=== PATIENT | male | born 1970 | race American Indian/Alaskan Native ===

== ENCOUNTER 2018-09-25 20:00 | Inpatient (IN) | payer BC ==
[2018-09-25 20:07] VITALS: BMI 25.4
--- NOTE | 2018-09-25 20:32 | ED PDOC ---
Arrival/HPI - General Chief Complaint: Chest Pain Time Seen by Provider: 09/25/18 20:06 Historian: Patient - History of Present Illness Narrative History of Present Illness (Text): 09/25/18 20:25 Adriano Ambrosio is a 48 year old male who presents to the ED complaining of mid- sternal chest pain since 03:00 this morning. Patient states pain is worsened with deep inspiration, also reports associated shortness of breath. Patient repo rts a family history of cardiac disease and notes his last stress test was 2 years ago. Patient denies any fever, chills, breath, nausea, vomiting, diarrhea, urinary symptoms, back pain, neck pain, headache, dizziness, or any other complaints. Symptom Onset: Gradual Symptom Course: Unchanged Activities at Onset: Light Context: Home Past Medical History - Provider Review Nursing Documentation Reviewed: Yes - Cardiac Hx Hypertension: Yes - Endocrine/Metabolic Hx Hypothyroidism: Yes - Psychiatric Hx Substance Use: No - Suicidal Assessment Feels Threatened In Home Enviroment: No Family/Social History - Physician Review Nursing Documentation Reviewed: Yes Family/Social History: Unknown Family HX Smoking Status: Never Smoked Hx Alcohol Use: No Hx Substance Use: No Allergies/Home Meds Allergies/Adverse Reactions: Allergies amoxicillin Allergy (Verified 09/25/18 20:07) ANAPHYLAXIS Home Medications: Home Meds Medication Instructions Recorded Confirmed Levothyroxine 1 tab PO DAILY 07/20/14 07/20/14 Meloxicam 1 tab PO DAILY 07/20/14 07/20/14 Review of Systems - Physician Review All systems were reviewed & negative as marked: Yes - Review of Systems Constitutional: Normal. absent: Fevers Eyes: Normal ENT: Normal Respiratory: SOB. absent: Cough Cardiovascular: Chest Pain Gastrointestinal: Normal. absent: Abdominal Pain, Diarrhea, Nausea, Vomiting Genitourinary Male: Normal. absent: Dysuria, Frequency, Hematuria, Urinary Output Changes Musculoskeletal: Normal. absent: Back Pain, Neck Pain Skin: Normal. absent: Rash Neurological: Normal. absent: Headache, Dizziness Endocrine: Normal Hemo/Lymphatic: Normal Psychiatric: Normal Physical Exam Vital Signs Reviewed: Yes Vital Signs Temp Pulse Resp BP Pulse Ox 09/25/18 20:04 97.7 F 60 18 142/75 98 Temperature: Afebrile Blood Pressure: Normal Pulse: Regular Respiratory Rate: Normal Appearance: Positive for: Well-Appearing, Non-Toxic, Comfortable Pain Distress: None Mental Status: Positive for: Alert and Oriented X 3 - Systems Exam Head: Present: Atraumatic, Normocephalic Pupils: Present: PERRL Extroacular Muscles: Present: EOMI Conjunctiva: Present: Normal Mouth: Present: Moist Mucous Membranes Neck: Present: Normal Range of Motion Respiratory/Chest: Present: Clear to Auscultation, Good Air Exchange. No: Respiratory Distress, Accessory Muscle Use Cardiovascular: Present: Regular Rate and Rhythm, Normal S1, S2. No: Murmurs Abdomen: No: Tenderness, Distention, Peritoneal Signs Back: Present: Normal Inspection Upper Extremity: Present: Normal Inspection. No: Cyanosis, Edema Lower Extremity: Present: Normal Inspection. No: Edema Neurological: Present: GCS=15, CN II-XII Intact, Speech Normal Skin: Present: Warm, Dry, Normal Color. No: Rashes Psychiatric: Present: Alert, Oriented x 3, Normal Insight, Normal Concentration Medical Decision Making ED Course and Treatment: 09/25/18 20:25 Impression: 48 year old male complaining of chest pain and shortness of breath. Plan: -- EKG -- Chest X-ray -- Labs, cardiac enzymes, D-dimer -- UA -- Reassess and disposition Prior Visits: Notes and results from previous visits were reviewed. Progress Notes: Reviewed EKG, sinus bradycardia at 59 bpm. LVH. Non-specific ST/T wave changes. 09/25/18 21:05 Chest X-ray reviewed, shows no acute processes. 09/25/18 22:50 Case discussed with medical scribe education coordinator, who is aware and agrees with plan. 09/25/18 23:[address] Bergman, who is aware and agrees with plan. Accepts pt in to hospitalist service. Pt will go to remote telemetry observation for chest pain. - Lab Interpretations I have reviewed the lab results: Yes - RAD Interpretation Software Quality Engineer: ED Physician - EKG Interpretation Interpreted by ED Physician: Yes Type: 12 lead EKG - Scribe Statement The provider has reviewed the documentation as recorded by the Scribe Aysha Ibarra Provider Scribe Attestation: All medical record entries made by the Scribe were at my direction and persona lly dictated by me. I have reviewed the chart and agree that the record accurately reflects my personal performance of the history, physical exam, medical decision making, and the department course for this patient. I have also personally directed, reviewed, and agree with the discharge instructions and disposition. Disposition/Present on Arrival - Present on Arrival Any Indicators Present on Arrival: No History of DVT/PE: No History of Uncontrolled Diabetes: No Urinary Catheter: No History of Decub. Ulcer: No History Surgical Site Infection Following: None - Disposition Have Diagnosis and Disposition been Completed?: Yes Diagnosis: Chest pain Disposition: HOSPITALIZED Disposition Time: 23:05 Condition: GOOD
[2018-09-25 20:53] LABS: BASO # 0.03 K/mm3 (0.0-2.0); BASO % 0.4 % (0.0-3.0); EOS # 0.2 (0.0-0.7); EOS % 2.3 % (1.5-5.0); HEMOGLOBIN 14.2 g/dL (14.0-18.0); LYMPH # 2.2 (1.2-3.4); LYMPH % 27.7 % (22.0-35.0); MEAN CORPUSCULAR HEMOGLOBIN 28.4 pg (25.0-35.0); MEAN CORPUSCULAR HGB CONC 33.4 g/dl (31.0-37.0); MEAN PLATELET VOLUME 10.4 fl (7.0-11.0); MONO # 0.6 (0.1-0.6); MONO % 7.7 % (1.0-6.0); RED CELL DISTRIBUTION WIDTH 13.7 % (11.5-14.5); WHITE BLOOD COUNT 7.8 10^3/uL (4.5-11.0)
[2018-09-25 20:56] LABS: ALB/GLOB RATIO 1.5 (1.1-1.8); ALBUMIN 4.4 g/dL (3.0-4.8); ALT/SGPT 34 U/L (7-56); AST/SGOT 38 U/L (17-59); BLOOD UREA NITROGEN 16 mg/dL (7-21); CALCIUM 9.5 mg/dL (8.4-10.5); GFR NON-AFRICAN AMERICAN 38
[2018-09-25 21:00] LABS: INR 1.07; PARTIAL THROMBOPLASTIN TIME 29.4 Seconds (26.9-38.3); PROTHROMBIN TIME 11.9 SECONDS (9.4-12.5)
[2018-09-25 21:04] LABS: D DIMER < 200 ng/mlDDU (0-243)
[2018-09-25 21:08] LABS: TROPONIN I < 0.01 ng/mL
[2018-09-25 21:17] LABS: CK-MB 3.1 ng/mL (0.0-3.6)
[2018-09-25 21:34] LABS: PH,URINE 6.5 (4.7-8.0); URINE BILIRUBIN NEGATIVE (NEGATIVE); URINE BLOOD NEGATIVE (NEGATIVE); URINE GLUCOSE (UA) NEGATIVE (NEGATIVE); URINE LEUKOCYTE ESTERASE NEGATIVE Leu/uL (NEGATIVE); URINE PROTEIN NEGATIVE mg/dL (<30 mg/dL); URINE UROBILINOGEN 0.2 E.U./dL (<1 E.U./dL)
[2018-09-25 21:37] LABS: URINE APPEARANCE CLEAR (CLEAR); URINE COLOR YELLOW (YELLOW)
[2018-09-25] MEDS ORDERED: Aspirin 325 mg EC Tablets PO STA (22:51)
--- NOTE | 2018-09-26 00:16 | CP.PCM.HP ---
<JaylaEfrain - Last Filed: 09/26/18 03:23> History of Present Illness - History of Present Illness History of Present Illness: Efrain Dickerson DO PGY-1 H&P Note for Dr. Pacheco Taylor: chest pain 48 year old male with PMH of vertigo, migraine, kidney disease presents to the ED with mid-sternal chest pain x1 day. Pain started at 3 am that's sharp, intermittent, no radiation, with tender to palpate chest wall. Patient noted to have respiratory infection with productive cough and fever for the last week for which he's been taking OTC ibuprofen and cough meds. Fever and cough resolved 3 days ago. Patient reports occasional SOB as well. He was seen at his PMD office, EKG done and shows bradycardia of 53. Patient was advised to come to ED for further work up. He denied cardiac disease, has cardiac stress test 2 years ago that was negative. He denied palpitations, headache, leg swelling, [place], orthopnea, exercise intolerance, changes in bowel movement, N/V/D, urinary symptoms. 12 points ROS reviewed with pertinent positives as above PMH:vertigo, migraine, kidney disease PSH: none Meds: Meclizine prn, naproxin All: amoxicillin FH: CAD, HTN, DM SH: drinks wine occasionally, no smoking or illicit drug use. Works as delivery, lifts heavy objects PMD: Dr Brush Present on Admission - Present on Admission Any Indicators Present on Admission: No Past Patient History - Past Social History Smoking Status: Never Smoked - CARDIAC Hx Hypertension: Yes - ENDOCRINE/METABOLIC Hx Hypothyroidism: Yes - PSYCHIATRIC Hx Substance Use: No Meds Allergies/Adverse Reactions: Allergies Allergy/AdvReac Type Severity Reaction Status Date / Time amoxicillin Allergy ANAPHYLAXIS Verified 09/25/18 20:07 Physical Exam - Constitutional Appears: Well, Non-toxic, No Acute Distress - Head Exam Head Exam: ATRAUMATIC, NORMAL INSPECTION, NORMOCEPHALIC - Eye Exam Eye Exam: EOMI, Normal appearance, PERRL Pupil Exam: NORMAL ACCOMODATION, PERRL - ENT Exam ENT Exam: Mucous Membranes Moist, Normal Exam - Neck Exam Neck exam: Positive for: Normal Inspection - Respiratory Exam Respiratory Exam: Chest Wall Tenderness, Clear to Auscultation Bilateral, NORMAL BREATHING PATTERN. absent: Rhonchi, Wheezes - Cardiovascular Exam Cardiovascular Exam: Bradycardia, REGULAR RHYTHM, +S1, +S2 - GI/Abdominal Exam GI & Abdominal Exam: Normal Bowel Sounds, Soft. absent: Guarding, Mass, Tenderness - Extremities Exam Extremities exam: Positive for: normal capillary refill, normal inspection. Negative for: calf tenderness, joint swelling, pedal edema, tenderness - Back Exam Back exam: NORMAL INSPECTION - Neurological Exam Neurological exam: Alert, CN II-XII Intact, Normal Gait, Oriented x3, Reflexes Normal - Psychiatric Exam Psychiatric exam: Normal Affect, Normal Mood - Skin Skin Exam: Dry, Intact, Normal Color, Warm Results - Vital Signs Recent Vital Signs: Last Vital Signs Temp 97.7 F 09/25/18 20:04 Pulse 63 09/26/18 00:11 Resp 18 09/26/18 00:11 BP 123/77 09/26/18 00:11 Pulse Ox 96 09/26/18 00:11 - Labs Result Diagrams: 09/25/18 20:41 09/25/18 20:41 Labs: Laboratory Results - last 24 hr 09/25/18 09/25/18 09/25/18 20:41 20:41 20:41 WBC 7.8 RBC 5.00 Hgb 14.2 Hct 42.5 MCV 85.0 MCH 28.4 MCHC 33.4 RDW 13.7 Plt Count 203 MPV 10.4 Neut % (Auto) 61.9 Lymph % (Auto) 27.7 Brooke % (Auto) 7.7 H Eos % (Auto) 2.3 Baso % (Auto) 0.4 Lymph # (Auto) 2.2 Brooke # (Auto) 0.6 Eos # (Auto) 0.2 Baso # (Auto) 0.03 Absolute Neuts (auto) 4.80 PT 11.9 INR 1.07 APTT 29.4 D-Dimer, Quantitative < 200 Sodium 140 Potassium 4.4 Chloride 102 Carbon Dioxide 31 Anion Gap 11 BUN 16 Creatinine 1.9 H Est GFR ( Amer) 46 Est GFR (Non-Af Amer) 38 Random Glucose 96 Calcium 9.5 Magnesium 2.2 Total Bilirubin 0.6 AST 38 ALT 34 Alkaline Phosphatase 51 Lactate Dehydrogenase 473 Total Creatine Kinase 612 H CK-MB (CK-2) 3.1 CK-MB (CK-2) % Cancelled Troponin I < 0.01 Total Protein 7.5 Albumin 4.4 Globulin 3.0 Albumin/Globulin Ratio 1.5 Urine Color Urine Appearance Urine pH Ur Specific [place] Urine Protein Urine Glucose (UA) Urine Ketones Urine Blood Urine Nitrate Urine Bilirubin Urine Urobilinogen Ur Leukocyte Esterase 09/25/18 21:15 WBC RBC Hgb Hct MCV MCH MCHC RDW Plt Count MPV Neut % (Auto) Lymph % (Auto) Brooke % (Auto) Eos % (Auto) Baso % (Auto) Lymph # (Auto) Brooke # (Auto) Eos # (Auto) Baso # (Auto) Absolute Neuts (auto) PT INR APTT D-Dimer, Quantitative Sodium Potassium Chloride Carbon Dioxide Anion Gap BUN Creatinine Est GFR ( Amer) Est GFR (Non-Af Amer) Random Glucose Calcium Magnesium Total Bilirubin AST ALT Alkaline Phosphatase Lactate Dehydrogenase Total Creatine Kinase CK-MB (CK-2) CK-MB (CK-2) % Troponin I Total Protein Albumin Globulin Albumin/Globulin Ratio Urine Color Yellow Urine Appearance Clear Urine pH 6.5 Ur Specific [place] 1.020 Urine Protein Negative Urine Glucose (UA) Negative Urine Ketones Negative Urine Blood Negative Urine Nitrate Negative Urine Bilirubin Negative Urine Urobilinogen 0.2 Ur Leukocyte Esterase Negative Assessment & Plan - Assessment and Plan (Free Text) Assessment: 48 year old male with PMH of vertigo, migraine and kidney disease presents to the ED with mid-sternal chest pain x1 day. Admitted to r/o ACS Plan: Atypical chest pain- r/o ACS: -EKG: sinus rupa @59, LVH, non specific ST-T wave changes -CXR: NAD -troponin negative x1. continue to trend -D-dimer negative -started asa 81 mg daily -duoneb for SOB -O2 NC prn -EKG in am -f/u lipid profile, A1C, TSH -strong family history of CAD Renal insuffiency: -BUN/Cr 16/1.9 with unknown baseline -IVF NS @100cc/hr h/o vertigo: -Meclizine prn PPX: DVT: SCD DVT: not indicated HHD Case reviewed and plan discussed with attending Dr Pacheco Dickerson, DO PGY1 <Phyllis Bergman - Last Filed: 09/26/18 12:59> Results - Vital Signs Recent Vital Signs: Last Vital Signs Temp 97.7 F 09/26/18 06:00 Pulse 55 L 09/26/18 06:00 Resp 18 09/26/18 06:00 BP 119/70 09/26/18 06:00 Pulse Ox 98 09/26/18 06:00 - Labs Result Diagrams: 09/26/18 06:00 09/26/18 06:00 Labs: Laboratory Results - last 24 hr 09/25/18 09/25/18 09/25/18 20:41 20:41 20:41 WBC 7.8 RBC 5.00 Hgb 14.2 Hct 42.5 MCV 85.0 MCH 28.4 MCHC 33.4 RDW 13.7 Plt Count 203 MPV 10.4 Neut % (Auto) 61.9 Lymph % (Auto) 27.7 Brooke % (Auto) 7.7 H Eos % (Auto) 2.3 Baso % (Auto) 0.4 Lymph # (Auto) 2.2 Brooke # (Auto) 0.6 Eos # (Auto) 0.2 Baso # (Auto) 0.03 Absolute Neuts (auto) 4.80 PT 11.9 INR 1.07 APTT 29.4 D-Dimer, Quantitative < 200 Sodium 140 Potassium 4.4 Chloride 102 Carbon Dioxide 31 Anion Gap 11 BUN 16 Creatinine 1.9 H Est GFR ( Amer) 46 Est GFR (Non-Af Amer) 38 Random Glucose 96 Hemoglobin A1c Calcium 9.5 Phosphorus Magnesium 2.2 Total Bilirubin 0.6 AST 38 ALT 34 Alkaline Phosphatase 51 Lactate Dehydrogenase 473 Total Creatine Kinase 612 H CK-MB (CK-2) 3.1 CK-MB (CK-2) % Cancelled Troponin I < 0.01 Total Protein 7.5 Albumin 4.4 Globulin 3.0 Albumin/Globulin Ratio 1.5 Triglycerides Cholesterol LDL Cholesterol Direct HDL Cholesterol TSH 3rd Generation Urine Color Urine Appearance Urine pH Ur Specific [place] Urine Protein Urine Glucose (UA) Urine Ketones Urine Blood Urine Nitrate Urine Bilirubin Urine Urobilinogen Ur Leukocyte Esterase 09/25/18 09/26/18 09/26/18 21:15 02:48 06:00 WBC 5.8 D RBC 4.81 Hgb 13.3 L Hct 40.7 L MCV 84.6 MCH 27.7 MCHC 32.7 RDW 13.8 Plt Count 178 MPV 10.1 Neut % (Auto) 55.6 Lymph % (Auto) 28.8 Brooke % (Auto) 11.9 H Eos % (Auto) 3.4 Baso % (Auto) 0.3 Lymph # (Auto) 1.7 Brooke # (Auto) 0.7 H Eos # (Auto) 0.2 Baso # (Auto) 0.02 Absolute Neuts (auto) 3.22 PT INR APTT D-Dimer, Quantitative Sodium Potassium Chloride Carbon Dioxide Anion Gap BUN Creatinine Est GFR ( Amer) Est GFR (Non-Af Amer) Random Glucose Hemoglobin A1c Calcium Phosphorus Magnesium Total Bilirubin AST ALT Alkaline Phosphatase Lactate Dehydrogenase Total Creatine Kinase CK-MB (CK-2) CK-MB (CK-2) % Troponin I < 0.01 Total Protein Albumin Globulin Albumin/Globulin Ratio Triglycerides Cholesterol LDL Cholesterol Direct HDL Cholesterol TSH 3rd Generation Urine Color Yellow Urine Appearance Clear Urine pH 6.5 Ur Specific [place] 1.020 Urine Protein Negative Urine Glucose (UA) Negative Urine Ketones Negative Urine Blood Negative Urine Nitrate Negative Urine Bilirubin Negative Urine Urobilinogen 0.2 Ur Leukocyte Esterase Negative 09/26/18 09/26/18 09/26/18 06:00 06:00 06:00 WBC RBC Hgb Hct MCV MCH MCHC RDW Plt Count MPV Neut % (Auto) Lymph % (Auto) Brooke % (Auto) Eos % (Auto) Baso % (Auto) Lymph # (Auto) Brooke # (Auto) Eos # (Auto) Baso # (Auto) Absolute Neuts (auto) PT INR APTT D-Dimer, Quantitative Sodium 138 Potassium 4.0 Chloride 104 Carbon Dioxide 28 Anion Gap 10 BUN 15 Creatinine 1.6 H Est GFR ( Amer) 57 Est GFR (Non-Af Amer) 47 Random Glucose 99 Hemoglobin A1c 6.2 Calcium 8.9 Phosphorus 3.6 Magnesium Total Bilirubin 0.6 AST 33 ALT 32 Alkaline Phosphatase 52 Lactate Dehydrogenase Total Creatine Kinase CK-MB (CK-2) CK-MB (CK-2) % Troponin I Total Protein 6.7 Albumin 3.9 Globulin 2.8 Albumin/Globulin Ratio 1.4 Triglycerides 58 Cholesterol 145 LDL Cholesterol Direct 53 HDL Cholesterol 79 H TSH 3rd Generation 2.70 Urine Color Urine Appearance Urine pH Ur Specific [place] Urine Protein Urine Glucose (UA) Urine Ketones Urine Blood Urine Nitrate Urine Bilirubin Urine Urobilinogen Ur Leukocyte Esterase 09/26/18 08:50 WBC RBC Hgb Hct MCV MCH MCHC RDW Plt Count MPV Neut % (Auto) Lymph % (Auto) Brooke % (Auto) Eos % (Auto) Baso % (Auto) Lymph # (Auto) Brooke # (Auto) Eos # (Auto) Baso # (Auto) Absolute Neuts (auto) PT INR APTT D-Dimer, Quantitative Sodium Potassium Chloride Carbon Dioxide Anion Gap BUN Creatinine Est GFR ( Amer) Est GFR (Non-Af Amer) Random Glucose Hemoglobin A1c Calcium Phosphorus Magnesium Total Bilirubin AST ALT Alkaline Phosphatase Lactate Dehydrogenase Total Creatine Kinase CK-MB (CK-2) CK-MB (CK-2) % Troponin I < 0.01 Total Protein Albumin Globulin Albumin/Globulin Ratio Triglycerides Cholesterol LDL Cholesterol Direct HDL Cholesterol TSH 3rd Generation Urine Color Urine Appearance Urine pH Ur Specific [place] Urine Protein Urine Glucose (UA) Urine Ketones Urine Blood Urine Nitrate Urine Bilirubin Urine Urobilinogen Ur Leukocyte Esterase Attending/Attestation - Attestation I have personally seen and examined this patient.: Yes I have fully participated in the care of the patient.: Yes I have reviewed all pertinent clinical information: Yes Notes (Text): 09/26/18 12:57 Pt seen with the resident by the bedside. Case discussed in detail Agree with documentation,assessment and plan of treatment.
[2018-09-26] MEDS ORDERED: Albuterol-Ipratrop 3 mg / 0.5 (3 ml) UD IH PRN (00:23)
[2018-09-26] MEDS ORDERED: Sodium Chloride 0.9% 1,000 ML IV SCH (00:30)
[2018-09-26 06:32] LABS: BASO # 0.02 K/mm3 (0.0-2.0); BASO % 0.3 % (0.0-3.0); EOS # 0.2 (0.0-0.7); EOS % 3.4 % (1.5-5.0); HEMOGLOBIN 13.3 g/dL (14.0-18.0); LYMPH # 1.7 (1.2-3.4); LYMPH % 28.8 % (22.0-35.0); MEAN CELL VOLUME 84.6 fl (80.0-105.0); MEAN CORPUSCULAR HEMOGLOBIN 27.7 pg (25.0-35.0); MEAN CORPUSCULAR HGB CONC 32.7 g/dl (31.0-37.0); MEAN PLATELET VOLUME 10.1 fl (7.0-11.0); MONO # 0.7 (0.1-0.6); MONO % 11.9 % (1.0-6.0); RBC 4.81 10^6/uL (3.5-6.1); RED CELL DISTRIBUTION WIDTH 13.8 % (11.5-14.5); WHITE BLOOD COUNT 5.8 10^3/uL (4.5-11.0)
[2018-09-26 06:48] LABS: ALB/GLOB RATIO 1.4 (1.1-1.8); ALBUMIN 3.9 g/dL (3.0-4.8); CALCIUM 8.9 mg/dL (8.4-10.5)
--- NOTE | 2018-09-26 09:44 | RAD ---
Date of service: 09/25/2018 HISTORY: cp COMPARISON: No prior. TECHNIQUE: 1 view obtained. FINDINGS: LUNGS: No active pulmonary disease. PLEURA: No significant pleural effusion identified, no pneumothorax apparent. CARDIOVASCULAR: No aortic atherosclerotic calcification present. Normal cardiac size. No pulmonary vascular congestion. OSSEOUS STRUCTURES: No significant abnormalities. VISUALIZED UPPER ABDOMEN: Normal. OTHER FINDINGS: None. IMPRESSION: No active disease.
--- NOTE | 2018-09-26 13:05 | CARD ---
APPROVED REPORT Date of service: 09/26/2018 EKG Measurement Heart [id number] <Conclusion> Normal sinus rhythm Possible Left atrial enlargement
--- NOTE | 2018-09-26 13:20 | CARD ---
APPROVED REPORT Date of service: 09/25/2018 EKG Measurement Heart [id number] <Conclusion> Sinus bradycardia Left atrial enlargement High Voltage -Left ventricular hypertrophy. Abnormal ECG
--- NOTE | 2018-09-26 17:47 | PCM.RRT ---
CONDITIONER TUMBLER OPERATOR Nurse Assessment - Situation Date: 09/26/18 Time CONDITIONER TUMBLER OPERATOR was called: 17:18 CONDITIONER TUMBLER OPERATOR Responder Arrival Time: 17:19 CONDITIONER TUMBLER OPERATOR Location:: [address] [place] [address] Room Number: [id number] CONDITIONER TUMBLER OPERATOR Reason for Call: Chest Pain, Looks Sicker CONDITIONER TUMBLER OPERATOR Called By: RN - IV IV Inserted during CONDITIONER TUMBLER OPERATOR?: No IV Fluids Initiated During CONDITIONER TUMBLER OPERATOR?: no new fluids 0.9 NS already rummimg at 100m/hr - Respiratory Oxygen Delivery Method: Nasal Cannula @L/min Oxygen Flow Rate: 2 Received Nebulizer Treatments:: No Was the Patient Ventilated with Bag/Mask 100% O2?: No Secretions Suctioned?: No Was the Patient Intubated?: No Was the Patient Placed on a Ventilator?: No - Diagnostic Test Ordered EKG: Yes Chest X-Ray: No CT Scan: No CPR started during CONDITIONER TUMBLER OPERATOR?: No - Vital Signs Vital Sign: Rapid Response Vital Sign Blood Pressure 168/52 Pulse Rate 98 Respiratory Rate 34 Temperature 97.9 F Oxygen Saturation 100 - Finger Stick Blood Glucose Finger Stick Blood Glucose: 74 - Time CONDITIONER TUMBLER OPERATOR Ended Time CONDITIONER TUMBLER OPERATOR Ended: 17:34 - Vital Signs at end of CONDITIONER TUMBLER OPERATOR Vital Signs at end of CONDITIONER TUMBLER OPERATOR: Rapid Response End Vital Sign Blood Pressure 154/94 Pulse Rate 98 Respiratory Rate 18 Temperature 97.9 F O2 Sat by Pulse Oximetry 100 - Recommendations Notifications: Attending Physician I.Reason for CONDITIONER TUMBLER OPERATOR - A) Acute Change in Patient: (Select all that apply): Staff member or family is worried about patient - Neurological Status (Select all that apply): Alert, Responsive - Respiratory Oxygen Delivery Method: Nasal Cannula @L/min Oxygen Flow Rate: 2 - Constitutional Appears: Other (anxious, sweating) - Head Head Exam: ATRAUMATIC, NORMOCEPHALIC - Eyes Eye Exam: EOMI, Normal appearance - Respiratory Exam Respiratory Exam: NORMAL BREATHING PATTERN. absent: Accessory Muscle Use - Cardiovascular Exam Cardiovascular Exam: RRR, +S1, +S2 - Neurological Exam Neurological Exam: Alert, Awake, Oriented x3 Plan - Assessment of Findings&Treatment Plan 48 year old male admitted with chest pain and found to have an LIONEL. Past medical history is not verifiable. Patient reports having a history of panic attacks, but denies taking any medications for it. A repeat EKG was performed and compared to prior. Dr. Brady was contacted and informed of the situation. He recommended to obtain stat urine drug screen, a dose of 75 mg of Clopidogrel, and SL nitroglycerin. If the patient's chest pain persist, he will be started on a Nitroglycerin drip and sent to the ICU. At this point in time, we will transfer the patient from remote telemtry (his current location) to telemetry. Furthermore, per Dr. Brady, the patient is to be kept NPO aftert midnight for a possible cardiac catheterization.
--- NOTE | 2018-09-26 17:50 | PCM.RRT ---
<Jose,Nacho - Last Filed: 09/26/18 17:47> LOAN INTERVIEWER Nurse Assessment - Situation Date: 09/26/18 Time LOAN INTERVIEWER was called: 17:18 LOAN INTERVIEWER Responder Arrival Time: 17:19 LOAN INTERVIEWER Location:: [address] [place] [address] Room Number: [id number] LOAN INTERVIEWER Reason for Call: Chest Pain, Looks Sicker LOAN INTERVIEWER Called By: RN - IV IV Inserted during LOAN INTERVIEWER?: No IV Fluids Initiated During LOAN INTERVIEWER?: no new fluids 0.9 NS already rummimg at 100m/hr - Respiratory Oxygen Delivery Method: Nasal Cannula @L/min Oxygen Flow Rate: 2 Received Nebulizer Treatments:: No Was the Patient Ventilated with Bag/Mask 100% O2?: No Secretions Suctioned?: No Was the Patient Intubated?: No Was the Patient Placed on a Ventilator?: No - Diagnostic Test Ordered EKG: Yes Chest X-Ray: No CT Scan: No CPR started during LOAN INTERVIEWER?: No - Vital Signs Vital Sign: Rapid Response Vital Sign Blood Pressure 168/52 Pulse Rate 98 Respiratory Rate 34 Temperature 97.9 F Oxygen Saturation 100 - Finger Stick Blood Glucose Finger Stick Blood Glucose: 74 - Time LOAN INTERVIEWER Ended Time LOAN INTERVIEWER Ended: 17:34 - Vital Signs at end of LOAN INTERVIEWER Vital Signs at end of LOAN INTERVIEWER: Rapid Response End Vital Sign Blood Pressure 154/94 Pulse Rate 98 Respiratory Rate 18 Temperature 97.9 F O2 Sat by Pulse Oximetry 100 - Recommendations Notifications: Attending Physician - Neurological Status (Select all that apply): Alert, Responsive, Oriented, Verbal, Follows Commands - Respiratory Oxygen Delivery Method: Nasal Cannula @L/min Oxygen Flow Rate: 2 - Constitutional Appears: Well, Non-toxic Additional Comments: Initially tremulous, with significant improvement during interview - Head Head Exam: NORMAL INSPECTION, NORMOCEPHALIC - Eyes Eye Exam: EOMI, Normal appearance - Respiratory Exam Respiratory Exam: Clear to Ausculation Bilateral, NORMAL BREATHING PATTERN - Cardiovascular Exam Cardiovascular Exam: REGULAR RHYTHM, +S1, +S2 - GI/Abdominal Exam GI & Abdominal Exam: Soft. absent: Tenderness - Neurological Exam Neurological Exam: Alert, Awake, Oriented x3 - Extremities Exam Extremities Exam: Normal Inspection. absent: Calf Tenderness Plan - Assessment of Findings&Treatment Plan S: LOAN INTERVIEWER called for pt complaining sharp midsternal chest pain, without radiation & change in clinical status, including diaphoresis and tremulousness. Upon interview, pt reported initial chest pain that had resolved during interview. He reports he noticed symptoms of chest pain 2 days prior to coming to hospital. He reports hes had several "panic attacks" in the past where he has felt diaphoretic, "shakiness" and fell to the ground. Pt also reports sour taste in mouth after eating food. Pt was verbal, not short of breath during conversation. He denies fevers, chills, numbness, tingling, shortness of breath, nausea, vomiting. O: Gen: Initially diaphoretic, tremulous. Improved significantly after conversation Heart: RRR, S1/S2 present. CP reproducible to palpation in midsternal and 4th rib, midclavicular region Lungs: CTA Ext: no calf tenderness A/P: EKG ordered stat, reviewed with pts director agricultural services, Dr. Brady. Pt to be transferred from [facility] to telemetry, stat plavix & nitroglycerin and NPO past midnight for possible catheterization tomorrow am. Serum ETOH and UDS ordered as well. <Blake Monroe A - Last Filed: 09/26/18 18:19> LOAN INTERVIEWER Nurse Assessment - Vital Signs Vital Sign: Rapid Response Vital Sign Blood Pressure 168/52 Pulse Rate 98 Respiratory Rate 34 Temperature 97.9 F Oxygen Saturation 100 - Vital Signs at end of LOAN INTERVIEWER Vital Signs at end of LOAN INTERVIEWER: Rapid Response End Vital Sign Blood Pressure 154/94 Pulse Rate 98 Respiratory Rate 18 Temperature 97.9 F O2 Sat by Pulse Oximetry 100 Attending/Attestation - Attestation I have personally seen and examined this patient.: Yes I have fully participated in the care of the patient.: Yes I have reviewed all pertinent clinical information, including history, physical exam and plan: Yes Notes (Text): 09/26/18 18:16 LOAN INTERVIEWER called this afternoon for chest pain and diaphoresis. Serial cardiac enzymes x 3 were negative since admission. EKG reviewed and case discussed with Dr. Brady. Patient is on aspirin. Plavix dose given. NPO pMN for possible cath. UDS and alcohol level ordered. FS 73; orange juice given. Will transfer to telemetry unit and monitor closely. Blake Monroe MD Hospitalist.
--- NOTE | 2018-09-26 18:29 | CARD ---
APPROVED REPORT Date of service: 09/26/2018 EKG Measurement Heart [id number] <Conclusion> Normal sinus rhythm Minimal voltage criteria for LVH, may be normal variant Non Specific ST-T Changes.
[2018-09-26 18:58] LABS: CK-MB 1.9 ng/mL (0.0-3.6); TROPONIN I < 0.01 ng/mL
[2018-09-26 19:18] LABS: BARBITURATES, UR NEGATIVE (NEGATIVE); BENZODIAZEPINES, UR NEGATIVE (NEGATIVE); OPIATES, UR NEGATIVE (NEGATIVE); PHENCYCLIDINE, UR NEGATIVE (NEGATIVE)
--- NOTE | 2018-09-26 19:43 | CARD ---
APPROVED REPORT Date of service: 09/26/2018 EXAM: Two-dimensional and M-mode echocardiogram with Doppler and color Doppler. INDICATION Chest Pain 2D DIMENSIONS Left Atrium (2D)3.9 (1.6-4.0cm)IVSd1.1 (0.7-1.1cm) LVDd4.6 (3.9-5.9cm)PWd0.9 (0.7-1.1cm) LVDs2.8 (2.5-4.0cm)FS (%) 38.7 % LVEF (%)69.1 (>50%) M-Mode DIMENSIONS Aortic Root3.30 (2.2-3.7cm)Aortic Cusp Exc.1.80 (1.5-2.0cm) Aortic Valve AoV Peak Wffaubbp443.0cm/Shanique Peak GR.9mmHg Mitral Valve E/A ratio0.0 TDI Lateral E' Peak V12.60cm/sMedial E' Peak V9.07cm/sE/Lateral E'0.0 E/Medial E'0.0 Pulmonary Valve PV Peak Sxuhpokm57.0cm/sPV Peak Grad.2mmHg Tricuspid Valve TR Peak [id number]/sRAP [id number] Peak Gr.12mmHg [id number] LEFT VENTRICLE The left ventricle is normal size. The left ventricular function is normal. The left ventricular ejection fraction is within the normal range.Ej.Fr:69%. RIGHT VENTRICLE The right ventricle is normal size. The right ventricular systolic function is normal. ATRIA The left atrium size is normal. The right atrium size is normal. AORTIC VALVE Aortic Valve Leaflets are Thickened. Valve Opening Normal. MITRAL VALVE The mitral valve is normal in structure. Valve Leaflets are Thickened. Mitral regurgitation is trace. TRICUSPID VALVE The tricuspid valve is normal in structure. There is trace tricuspid regurgitation. PERICARDIAL EFFUSION There is no pericardial effusion. <Conclusion> The left ventricle is normal size. The left ventricular function is normal. The left ventricular ejection fraction is within the normal range.Ej.Fr:69%. The right ventricle is normal size. The right ventricular systolic function is normal. The left atrium size is normal. The right atrium size is normal. Aortic Valve Leaflets are Thickened. Valve Opening Normal. The mitral valve is normal in structure. Valve Leaflets are Thickened. Mitral regurgitation is trace. The tricuspid valve is normal in structure. There is trace tricuspid regurgitation. There is no pericardial effusion.
[2018-09-26] MEDS: Acetylcysteine 20% Inhal Soln (4ml) PO SCH (19:50)
--- NOTE | 2018-09-27 02:15 | CON ---
DATE: 09/26/2018 CARDIOLOGY CONSULTATION REASON FOR CONSULTATION: Chest pain. HISTORY OF PRESENT ILLNESS: The patient is 48 years old, a male who has no known prior cardiac history, presenting because of chest pain that he describes as pressure retrosternal when he has a bout of diaphoresis. The patient stated that he was diaphoretic briefly. The patient stated that his chest pain happened while he was lying in bed. The patient denies any exertional chest pain or shortness of breath. The patient underwent a stress test as an outpatient some two years ago, which he was told was normal. SOCIAL HISTORY: The patient is single. He is a smoker. He works for [employer]. MEDICATIONS: Current medications; Antivert 12.5 mg once a day, albuterol inhaler every 2 hours p.r.n., aspirin 81 mg once a day, Tylenol 650 mg every 6 hours p.r.n. for pain, normal saline at 100 mL an hour. REVIEW OF SYSTEMS: No nausea or vomiting. No fever or chills. No productive cough. PHYSICAL EXAMINATION GENERAL: The patient is a middle-aged male, who does not appear to be in acute distress. VITAL SIGNS: Blood pressure is 119/70, heart rate 55, temperature 97.7, and respirations 18. HEENT: Normocephalic. CHEST: Clear. HEART: S1 and S2 regular. ABDOMEN: Soft. EXTREMITIES: No edema and no calf tenderness. LABORATORY DATA: Today's SMA-7. Sodium 136, potassium 4.0, chloride 104, CO2 of 28, glucose 99, BUN 15, and creatinine 1.6. Yesterday's creatinine was 1.9. Three sets of troponins are negative. Lipid profile is within normal limits except for HDL at 79. TSH level is within normal limits. PT/PTT and D-dimer are within normal limits. Admitting EKG revealed sinus bradycardia at the rate of 59, LVH by voltage. Chest x-ray official report; no active disease. ASSESSMENT: 1. Chest pain, myocardial infraction is ruled out. 2. Renal insufficiency, most likely a chronic one. 3. Mild sinus bradycardia. RECOMMENDATIONS 1. Continue aspirin 81 mg once a day. 2. Albuterol inhaler every 2 hours p.r.n. 3. Obtain urine for drug screen. 4. I would review the echocardiograph study performed today. Mitchel Brady MD [facility] # [id number]
--- NOTE | 2018-09-27 04:26 | CP.PCM.PN ---
Subjective - Date & Time of Evaluation Date of Evaluation: 09/27/18 Time of Evaluation: 04:26 - Subjective Subjective: TBD Seen earlier Objective - Vital Signs/Intake and Output Vital Signs (last 24 hours): Temp Pulse Resp BP Pulse Ox 98.2 F 52 L 20 120/71 97 09/27/18 00:01 09/27/18 00:01 09/27/18 00:01 09/27/18 00:01 09/27/18 00:01 - Medications Medications: Current Medications Acetaminophen (Tylenol 325mg Tab) 650 mg PO Q6H PRN PRN Reason: Pain, Mild (1-3) Last Admin: 09/26/18 10:21 Dose: 650 mg Acetylcysteine (Acetylcysteine 20%) 3 ml PO BID [facility] Stop: 09/27/18 18:16 Last Admin: 09/26/18 19:50 Dose: 3 ml Albuterol/Ipratropium (Duoneb 3 Mg/0.5 Mg (3 Ml) Ud) 3 ml IH Q2H PRN PRN Reason: Shortness of Breath Aspirin (Ecotrin) 81 mg PO DAILY [facility] Last Admin: 09/26/18 09:31 Dose: 81 mg Meclizine HCl (Antivert) 12.5 mg PO DAILY PRN PRN Reason: Dizziness - Labs Labs: 09/26/18 06:00 09/26/18 06:00 PT 11.9 SECONDS (9.4-12.5) 09/25/18 20:41 INR 1.07 09/25/18 20:41 APTT 29.4 Seconds (26.9-38.3) 09/25/18 20:41
--- NOTE | 2018-09-27 04:32 | CP.PCM.PN ---
Subjective - Date & Time of Evaluation Date of Evaluation: 09/27/18 Time of Evaluation: 04:31 - Subjective Subjective: NTG SL 0.4 mg ordered. 0.3 mg in pixes, given. no other C/0 pain restarted. Objective - Vital Signs/Intake and Output Vital Signs (last 24 hours): Temp Pulse Resp BP Pulse Ox 98.2 F 60 20 120/71 97 09/27/18 00:01 09/27/18 02:00 09/27/18 00:01 09/27/18 00:01 09/27/18 00:01 - Medications Medications: Current Medications Acetaminophen (Tylenol 325mg Tab) 650 mg PO Q6H PRN PRN Reason: Pain, Mild (1-3) Last Admin: 09/26/18 10:21 Dose: 650 mg Acetylcysteine (Acetylcysteine 20%) 3 ml PO BID [facility] Stop: 09/27/18 18:16 Last Admin: 09/26/18 19:50 Dose: 3 ml Albuterol/Ipratropium (Duoneb 3 Mg/0.5 Mg (3 Ml) Ud) 3 ml IH Q2H PRN PRN Reason: Shortness of Breath Aspirin (Ecotrin) 81 mg PO DAILY [facility] Last Admin: 09/26/18 09:31 Dose: 81 mg Meclizine HCl (Antivert) 12.5 mg PO DAILY PRN PRN Reason: Dizziness - Labs Labs: 09/26/18 06:00 09/26/18 06:00 PT 11.9 SECONDS (9.4-12.5) 09/25/18 20:41 INR 1.07 09/25/18 20:41 APTT 29.4 Seconds (26.9-38.3) 09/25/18 20:41
[2018-09-27 07:12] LABS: BASO # 0.02 K/mm3 (0.0-2.0); BASO % 0.3 % (0.0-3.0); EOS # 0.2 (0.0-0.7); EOS % 2.5 % (1.5-5.0); HEMOGLOBIN 14.2 g/dL (14.0-18.0); LYMPH # 1.7 (1.2-3.4); LYMPH % 24.8 % (22.0-35.0); MEAN CELL VOLUME 84.4 fl (80.0-105.0); MEAN CORPUSCULAR HGB CONC 33.1 g/dl (31.0-37.0); MEAN PLATELET VOLUME 10.1 fl (7.0-11.0); MONO # 0.7 (0.1-0.6); MONO % 10.5 % (1.0-6.0); RBC 5.08 10^6/uL (3.5-6.1); RED CELL DISTRIBUTION WIDTH 13.8 % (11.5-14.5); WHITE BLOOD COUNT 6.7 10^3/uL (4.5-11.0)
[2018-09-27] MEDS ORDERED: Sodium Chloride 0.9% 1,000 ML IV SCH (07:30)
[2018-09-27 07:35] LABS: ALB/GLOB RATIO 1.4 (1.1-1.8); ALBUMIN 4.2 g/dL (3.0-4.8); ALT/SGPT 28 U/L (7-56); AST/SGOT 34 U/L (17-59); BLOOD UREA NITROGEN 13 mg/dL (7-21); CALCIUM 9.1 mg/dL (8.4-10.5); GFR NON-AFRICAN AMERICAN 50
[2018-09-27] MEDS ORDERED: Iodixanol 320 mg/ml 150 ml Bottle IV ONE (09:33)
[2018-09-27] MEDS ORDERED: Iohexol 350mgl/ml 50 ML ONE (09:33)
[2018-09-27] MEDS ORDERED: Lidocaine PF 2% (5 ml) Inj (For Cardiac Arrhy) ONE (09:33)
[2018-09-27] MEDS ORDERED: Iodixanol 320 MG/ML 100 ML BOTTLE IV ONE (09:33)
[2018-09-27] MEDS ORDERED: Midazolam 2 MG/2 ML VIAL ONE (10:13)
--- NOTE | 2018-09-27 10:43 | CP.PCM.PN ---
<Liban Malik - Last Filed: 09/27/18 10:34> Subjective - Date & Time of Evaluation Date of Evaluation: 09/27/18 Time of Evaluation: 10:34 - Subjective Subjective: Medicine Progress Note for Dr. Monroe Patient seen and examined at bedside. Patient had FUR JOINER yesterday due to chest pain, cardiac vs anxiety. Patient also had CP overnight requiring SL nitro. Currently, patient still complains of sternal chest pain. Patient is going for cardiac catherization today. Objective - Vital Signs/Intake and Output Vital Signs (last 24 hours): Temp Pulse Resp BP Pulse Ox 97.7 F 61 20 123/67 97 09/27/18 06:00 09/27/18 06:00 09/27/18 06:00 09/27/18 06:00 09/27/18 00:01 Intake and Output: 09/27/18 09/27/18 06:59 18:59 Intake Total 240 Output Total 450 Balance -210 - Medications Medications: Current Medications Acetaminophen (Tylenol 325mg Tab) 650 mg PO Q6H PRN PRN Reason: Pain, Mild (1-3) Last Admin: 09/26/18 10:21 Dose: 650 mg Acetylcysteine (Acetylcysteine 20%) 3 ml PO BID [facility] Stop: 09/27/18 18:16 Last Admin: 09/26/18 19:50 Dose: 3 ml Albuterol/Ipratropium (Duoneb 3 Mg/0.5 Mg (3 Ml) Ud) 3 ml IH Q2H PRN PRN Reason: Shortness of Breath Aspirin (Ecotrin) 81 mg PO DAILY [facility] Last Admin: 09/26/18 09:31 Dose: 81 mg Sodium Chloride (Sodium Chloride 0.9%) 1,000 mls @ 100 mls/hr IV .Q10H [facility] Last Admin: 09/27/18 08:15 Dose: 100 mls/hr Meclizine HCl (Antivert) 12.5 mg PO DAILY PRN PRN Reason: Dizziness - Labs Labs: 09/27/18 07:00 09/27/18 07:00 PT 11.9 SECONDS (9.4-12.5) 09/25/18 20:41 INR 1.07 09/25/18 20:41 APTT 29.4 Seconds (26.9-38.3) 09/25/18 20:41 - Constitutional Appears: No Acute Distress - Head Exam Head Exam: NORMAL INSPECTION - Eye Exam Eye Exam: Normal appearance - ENT Exam ENT Exam: Mucous Membranes Moist, Normal Exam - Neck Exam Neck Exam: Normal Inspection - Respiratory Exam Respiratory Exam: Clear to Ausculation Bilateral. absent: Rales, Rhonchi, Wheezes - Cardiovascular Exam Cardiovascular Exam: RRR, +S1, +S2. absent: Gallop, Rubs, Murmur Additional comments: sternal tenderness on palpation - GI/Abdominal Exam GI & Abdominal Exam: Soft. absent: Distended, Guarding, Tenderness, Rebound - Extremities Exam Extremities Exam: Normal Inspection - Back Exam Back Exam: NORMAL INSPECTION - Neurological Exam Neurological Exam: Alert, Awake, Oriented x3 - Psychiatric Exam Psychiatric exam: Normal Affect, Normal Mood Assessment and Plan - Assessment and Plan (Free Text) Assessment: 48 year old male with PMH of vertigo, migraine and kidney disease presents to the ED with mid-sternal chest pain. Patient will undergo cardiac catherization to further evaluate the etiology of his chest pain. Plan: Atypical chest pain - EKG: sinus rupa @59, LVH, non specific ST-T wave changes; repeat EKG consistent - CXR: NAD - Troponin x3 negative - D-dimer negative - Cont ASA 81 mg daily - Plavix 75 mg x1, f/u recs after cath - ASCVD 10 yr risk 5.5% - Cardiology consulted - cardiac catherization today Renal insuffiency, improved: - Cont IVF NS @100cc/hr - Acetylcysteine prior to cath - Avoid nephrotoxic agents h/o vertigo: -Meclizine prn PPX: DVT: SCD Case reviewed and plan discussed with attending Dr. Monroe. Víctor Malik DO PGY2 <Blake Monroe - Last Filed: 09/27/18 14:09> Objective - Vital Signs/Intake and Output Vital Signs (last 24 hours): Temp Pulse Resp BP Pulse Ox 97.7 F 61 20 123/67 97 09/27/18 06:00 09/27/18 06:00 09/27/18 06:00 09/27/18 06:00 09/27/18 00:01 Intake and Output: 09/27/18 09/27/18 06:59 18:59 Intake Total 240 Output Total 450 Balance -210 - Medications Medications: Current Medications Acetaminophen (Tylenol 325mg Tab) 650 mg PO Q6H PRN PRN Reason: Pain, Mild (1-3) Last Admin: 09/26/18 10:21 Dose: 650 mg Acetylcysteine (Acetylcysteine 20%) 3 ml PO BID [facility] Stop: 09/27/18 18:16 Last Admin: 09/27/18 11:42 Dose: Not Given Albuterol/Ipratropium (Duoneb 3 Mg/0.5 Mg (3 Ml) Ud) 3 ml IH Q2H PRN PRN Reason: Shortness of Breath Aspirin (Ecotrin) 81 mg PO DAILY [facility] Last Admin: 09/26/18 09:31 Dose: 81 mg Sodium Chloride (Sodium Chloride 0.9%) 1,000 mls @ 100 mls/hr IV .Q10H [facility] Last Admin: 09/27/18 08:15 Dose: 100 mls/hr Meclizine HCl (Antivert) 12.5 mg PO DAILY PRN PRN Reason: Dizziness - Labs Labs: 09/27/18 07:00 09/27/18 07:00 PT 11.9 SECONDS (9.4-12.5) 09/25/18 20:41 INR 1.07 09/25/18 20:41 APTT 29.4 Seconds (26.9-38.3) 09/25/18 20:41 Attending/Attestation - Attestation I have personally seen and examined this patient.: Yes I have fully participated in the care of the patient.: Yes I have reviewed all pertinent clinical information, including history, physical exam and plan: Yes Notes (Text): 09/27/18 14:06 48 year old male with past medical history of CKD and strong family cardiac history who presented with complaint of chest pain and diaphrosis. UDS and D-dimer were negative. Serial cardiac enzymes were negative. However yesterday evening chest pain and diaphoresis persisted. He is on aspirin and received dose of plavix yesterday was well. Patient is for cardiac cath this morning. Will follow up with cardiology recommendations. He is on fluids for acute on chronic renal disease which improved. Continue to monitor closely. Blake Monroe MD Hospitalist.
[2018-09-27] MEDS: Acetylcysteine 20% Inhal Soln (4ml) PO SCH (11:42)
[2018-09-27 16:20] VITALS: TEMP 97.9
[2018-09-27 16:27] VITALS: RESP 20
--- NOTE | 2018-09-27 16:50 | CP.PCM.DIS ---
<Liban Malik - Last Filed: 09/27/18 16:47> Provider - Provider Date of Admission: 09/25/18 22:49 Attending physician: Blake Monroe MD Primary care physician: NO PRIMARY CARE PROVIDER Consults: 09/26/18 07:21 Cardiology Consult Routine Comment: Consulting Provider: Mitchel Brady Consulting Physician: Mitchel Brady Reason for Consult: chest pain r/o Time Spent in preparation of Discharge (in minutes): 40 Diagnosis - Discharge Diagnosis (1) Chest pain Status: Resolved (2) GERD (gastroesophageal reflux disease) Status: Chronic Hospital Course - Lab Results Lab Results: Most Recent Lab Values WBC 6.7 10^3/uL (4.5-11.0) 09/27/18 07:00 RBC 5.08 10^6/uL (3.5-6.1) 09/27/18 07:00 Hgb 14.2 g/dL (14.0-18.0) 09/27/18 07:00 Hct 42.9 % (42.0-52.0) 09/27/18 07:00 MCV 84.4 fl (80.0-105.0) 09/27/18 07:00 MCH 28.0 pg (25.0-35.0) 09/27/18 07:00 MCHC 33.1 g/dl (31.0-37.0) 09/27/18 07:00 RDW 13.8 % (11.5-14.5) 09/27/18 07:00 Plt Count 192 10^3/uL (120.0-450.0) 09/27/18 07:00 MPV 10.1 fl (7.0-11.0) 09/27/18 07:00 Neut % (Auto) 61.9 % (50.0-68.0) 09/27/18 07:00 Lymph % (Auto) 24.8 % (22.0-35.0) 09/27/18 07:00 Tift % (Auto) 10.5 % (1.0-6.0) H 09/27/18 07:00 Eos % (Auto) 2.5 % (1.5-5.0) 09/27/18 07:00 Baso % (Auto) 0.3 % (0.0-3.0) 09/27/18 07:00 Lymph # (Auto) 1.7 (1.2-3.4) 09/27/18 07:00 Tift # (Auto) 0.7 (0.1-0.6) H 09/27/18 07:00 Eos # (Auto) 0.2 (0.0-0.7) 09/27/18 07:00 Baso # (Auto) 0.02 K/mm3 (0.0-2.0) 09/27/18 07:00 Absolute Neuts (auto) 4.16 (1.4-6.5) 09/27/18 07:00 PT 11.9 SECONDS (9.4-12.5) 09/25/18 20:41 INR 1.07 09/25/18 20:41 APTT 29.4 Seconds (26.9-38.3) 09/25/18 20:41 D-Dimer, Quantitative < 200 ng/mlDDU (0-243) 09/25/18 20:41 Sodium 137 mmol/L (132-148) 09/27/18 07:00 Potassium 4.0 mmol/L (3.6-5.0) 09/27/18 07:00 Chloride 102 mmol/L (98-107) 09/27/18 07:00 Carbon Dioxide 29 mmol/L (21-33) 09/27/18 07:00 Anion Gap 10 (10-20) 09/27/18 07:00 BUN 13 mg/dL (7-21) 09/27/18 07:00 Creatinine 1.5 mg/dl (0.8-1.5) 09/27/18 07:00 Est GFR ( Amer) > 60 09/27/18 07:00 Est GFR (Non-Af Amer) 50 09/27/18 07:00 POC Glucose (mg/dL) 74 mg/dL (65-110) 09/26/18 17:21 Random Glucose 91 mg/dL (70-110) 09/27/18 07:00 Hemoglobin A1c 6.2 % (4.2-6.5) 09/26/18 06:00 Calcium 9.1 mg/dL (8.4-10.5) 09/27/18 07:00 Phosphorus 3.6 mg/dL (2.5-4.5) 09/26/18 06:00 Magnesium 2.2 mg/dL (1.7-2.2) 09/25/18 20:41 Total Bilirubin 0.6 mg/dL (0.2-1.3) 09/27/18 07:00 AST 34 U/L (17-59) 09/27/18 07:00 ALT 28 U/L (7-56) 09/27/18 07:00 Alkaline Phosphatase 60 U/L (38-126) 09/27/18 07:00 Lactate Dehydrogenase 351 U/L (333-699) 09/26/18 18:02 Total Creatine Kinase 510 U/L (35-230) H 09/26/18 18:02 CK-MB (CK-2) 1.9 ng/mL (0.0-3.6) 09/26/18 18:02 CK-MB (CK-2) % Cancelled 09/25/18 20:41 Troponin I < 0.01 ng/mL 09/26/18 18:02 Total Protein 7.1 g/dL (5.8-8.3) 09/27/18 07:00 Albumin 4.2 g/dL (3.0-4.8) 09/27/18 07:00 Globulin 2.9 gm/dL 09/27/18 07:00 Albumin/Globulin Ratio 1.4 (1.1-1.8) 09/27/18 07:00 Triglycerides 58 mg/dL (35-160) 09/26/18 06:00 Cholesterol 145 mg/dL (130-200) 09/26/18 06:00 LDL Cholesterol Direct 53 mg/dL (0-129) 09/26/18 06:00 HDL Cholesterol 79 mg/dL (29-60) H 09/26/18 06:00 TSH 3rd Generation 2.70 mIU/mL (0.46-4.68) 09/26/18 06:00 Urine Color Yellow (YELLOW) 09/25/18 21:15 Urine Appearance Clear (CLEAR) 09/25/18 21:15 Urine pH 6.5 (4.7-8.0) 09/25/18 21:15 Ur Specific [place] 1.020 (1.005-1.035) 09/25/18 21:15 Urine Protein Negative mg/dL (<30 mg/dL) 09/25/18 21:15 Urine Glucose (UA) Negative mg/dL (NEGATIVE) 09/25/18 21:15 Urine Ketones Negative mg/dL (NEGATIVE) 09/25/18 21:15 Urine Blood Negative (NEGATIVE) 09/25/18 21:15 Urine Nitrate Negative (NEGATIVE) 09/25/18 21:15 Urine Bilirubin Negative (NEGATIVE) 09/25/18 21:15 Urine Urobilinogen 0.2 E.U./dL (<1 E.U./dL) 09/25/18 21:15 Ur Leukocyte Esterase Negative Elicia/uL (NEGATIVE) 09/25/18 21:15 Urine Opiates Screen Negative (NEGATIVE) 09/26/18 18:40 Urine Methadone Screen Negative (NEGATIVE) 09/26/18 18:40 Ur Barbiturates Screen Negative (NEGATIVE) 09/26/18 18:40 Ur Phencyclidine Scrn Negative (NEGATIVE) 09/26/18 18:40 Ur Amphetamines Screen Negative (NEGATIVE) 09/26/18 18:40 U Benzodiazepines Scrn Negative (NEGATIVE) 09/26/18 18:40 U Oth Cocaine Metabols Negative (NEGATIVE) 09/26/18 18:40 U Cannabinoids Screen Negative (NEGATIVE) 09/26/18 18:40 Alcohol, Quantitative < 10 mg/dL (0-10) 09/26/18 18:02 - Hospital Course Hospital Course: Patient is a 48 year old male with PMH of vertigo, migraine, kidney disease presented to the ED with mid-sternal chest pain x1 day. Midsternal chest pain was tender to palpation. Patient notably had URI with cough prior to start of chest pain. Patient was evaluated by his PMD, who advised he go to ED. Of note, he had cardiac stress test 2 years ago that was negative. Patient was subsequently admitted for atypical chest pain to rule out acute coronary syndrome and acute kidney injury. Cardiac enzymes were trended and negative x3, EKG showed sinus bradycardia with non-specific ST-T wave changes. LIONEL resolved with IVF. Hospital course was significant for [employer] in which patient had atypical chest pain; unclear if chest pain was cardiac or anxiety related. Patient was evaluated by cardiology who determined patient required cardiac catherization. Cardiac catherization was unremarkable. The origin of his chest pain was likely 2/2 GI etiology. As patient was hemodynamically stable and cleared by ca rdiology, patient was discharged. Patient was advised to follow up with his PMD within 3-5 days. Patient was also advised to follow up with GI outpatient for further evaulation. Patient was advised to follow up with the GI of his choice, but given information for Dr. Mondragon as an option for follow up. Patient was discharged baby aspirin and protonix. Discharge Exam - Head Exam Head Exam: NORMAL INSPECTION - Eye Exam Eye Exam: Normal appearance - ENT Exam ENT Exam: Normal Exam - Respiratory Exam Respiratory Exam: Clear to PA & Lateral. absent: Rales, Rhonchi, Wheezes - Cardiovascular Exam Cardiovascular Exam: RRR, +S1, +S2. absent: Diastolic murmur, Gallop, Rubs, Systolic Murmur - GI/Abdominal Exam GI & Abdominal Exam: Soft. absent: Distended, Guarding, Rebound, Tenderness - Back Exam Back exam: NORMAL INSPECTION - Neurological Exam Neurological exam: Alert, Oriented x3 - Psychiatric Exam Psychiatric exam: Normal Affect, Normal Mood - Skin Skin Exam: Normal Color, Warm Discharge Plan - Discharge Medications Prescriptions: Aspirin [Ecotrin] 81 mg PO DAILY #14 tabec Pantoprazole Sodium [Protonix] 40 mg PO DAILY #14 ect - Follow Up Plan Condition: GOOD Instructions: Cardiac Catheterization, Heart Healthy Diet, Acid Reflux (Gastroesophageal Reflux Disease), Adult (DC), Lowering Your Risk of Heart Disease, How to Keep Track of Your Heart Rate and Blood Pressure, Chest Pain (ED) Additional Instructions: - Please follow up with a Primary Care Doctor, Dr. Rosado, within 1 week of discharge. - Please follow up with a Shop Girl within 1 week of discharge. - Please follow up with a Gasteroenterologist (GI) within 1 week of discharge. - You are being given the following medications on discharge: - Aspirin 81mg once a day - Protonix 40mg once a day - Your cardiac catheterization did not show any significant blockages. - Please return to the nearest emergency department if your symptoms worsen or reoccur. Referrals: Mitchel Brady MD [Staff Provider] - PCP,NO [Primary Care Provider] - <Blake Monroe - Last Filed: 09/27/18 17:21> Provider - Provider Date of Admission: 09/26/18 17:41 Attending physician: Blake Monroe MD Primary care physician: NO PRIMARY CARE PROVIDER Consults: 09/26/18 07:21 Cardiology Consult Routine Comment: Consulting Provider: Mitchel Brady Consulting Physician: Mitchel Brady Reason for Consult: chest pain r/o Hospital Course - Lab Results Lab Results: Most Recent Lab Values WBC 6.7 10^3/uL (4.5-11.0) 09/27/18 07:00 RBC 5.08 10^6/uL (3.5-6.1) 09/27/18 07:00 Hgb 14.2 g/dL (14.0-18.0) 09/27/18 07:00 Hct 42.9 % (42.0-52.0) 09/27/18 07:00 MCV 84.4 fl (80.0-105.0) 09/27/18 07:00 MCH 28.0 pg (25.0-35.0) 09/27/18 07:00 MCHC 33.1 g/dl (31.0-37.0) 09/27/18 07:00 RDW 13.8 % (11.5-14.5) 09/27/18 07:00 Plt Count 192 10^3/uL (120.0-450.0) 09/27/18 07:00 MPV 10.1 fl (7.0-11.0) 09/27/18 07:00 Neut % (Auto) 61.9 % (50.0-68.0) 09/27/18 07:00 Lymph % (Auto) 24.8 % (22.0-35.0) 09/27/18 07:00 Tift % (Auto) 10.5 % (1.0-6.0) H 09/27/18 07:00 Eos % (Auto) 2.5 % (1.5-5.0) 09/27/18 07:00 Baso % (Auto) 0.3 % (0.0-3.0) 09/27/18 07:00 Lymph # (Auto) 1.7 (1.2-3.4) 09/27/18 07:00 Tift # (Auto) 0.7 (0.1-0.6) H 09/27/18 07:00 Eos # (Auto) 0.2 (0.0-0.7) 09/27/18 07:00 Baso # (Auto) 0.02 K/mm3 (0.0-2.0) 09/27/18 07:00 Absolute Neuts (auto) 4.16 (1.4-6.5) 09/27/18 07:00 PT 11.9 SECONDS (9.4-12.5) 09/25/18 20:41 INR 1.07 09/25/18 20:41 APTT 29.4 Seconds (26.9-38.3) 09/25/18 20:41 D-Dimer, Quantitative < 200 ng/mlDDU (0-243) 09/25/18 20:41 Sodium 137 mmol/L (132-148) 09/27/18 07:00 Potassium 4.0 mmol/L (3.6-5.0) 09/27/18 07:00 Chloride 102 mmol/L (98-107) 09/27/18 07:00 Carbon Dioxide 29 mmol/L (21-33) 09/27/18 07:00 Anion Gap 10 (10-20) 09/27/18 07:00 BUN 13 mg/dL (7-21) 09/27/18 07:00 Creatinine 1.5 mg/dl (0.8-1.5) 09/27/18 07:00 Est GFR ( Amer) > 60 09/27/18 07:00 Est GFR (Non-Af Amer) 50 09/27/18 07:00 POC Glucose (mg/dL) 74 mg/dL (65-110) 09/26/18 17:21 Random Glucose 91 mg/dL (70-110) 09/27/18 07:00 Hemoglobin A1c 6.2 % (4.2-6.5) 09/26/18 06:00 Calcium 9.1 mg/dL (8.4-10.5) 09/27/18 07:00 Phosphorus 3.6 mg/dL (2.5-4.5) 09/26/18 06:00 Magnesium 2.2 mg/dL (1.7-2.2) 09/25/18 20:41 Total Bilirubin 0.6 mg/dL (0.2-1.3) 09/27/18 07:00 AST 34 U/L (17-59) 09/27/18 07:00 ALT 28 U/L (7-56) 09/27/18 07:00 Alkaline Phosphatase 60 U/L (38-126) 09/27/18 07:00 Lactate Dehydrogenase 351 U/L (333-699) 09/26/18 18:02 Total Creatine Kinase 510 U/L (35-230) H 09/26/18 18:02 CK-MB (CK-2) 1.9 ng/mL (0.0-3.6) 09/26/18 18:02 CK-MB (CK-2) % Cancelled 09/25/18 20:41 Troponin I < 0.01 ng/mL 09/26/18 18:02 Total Protein 7.1 g/dL (5.8-8.3) 09/27/18 07:00 Albumin 4.2 g/dL (3.0-4.8) 09/27/18 07:00 Globulin 2.9 gm/dL 09/27/18 07:00 Albumin/Globulin Ratio 1.4 (1.1-1.8) 09/27/18 07:00 Triglycerides 58 mg/dL (35-160) 09/26/18 06:00 Cholesterol 145 mg/dL (130-200) 09/26/18 06:00 LDL Cholesterol Direct 53 mg/dL (0-129) 09/26/18 06:00 HDL Cholesterol 79 mg/dL (29-60) H 09/26/18 06:00 TSH 3rd Generation 2.70 mIU/mL (0.46-4.68) 09/26/18 06:00 Urine Color Yellow (YELLOW) 09/25/18 21:15 Urine Appearance Clear (CLEAR) 09/25/18 21:15 Urine pH 6.5 (4.7-8.0) 09/25/18 21:15 Ur Specific [place] 1.020 (1.005-1.035) 09/25/18 21:15 Urine Protein Negative mg/dL (<30 mg/dL) 09/25/18 21:15 Urine Glucose (UA) Negative mg/dL (NEGATIVE) 09/25/18 21:15 Urine Ketones Negative mg/dL (NEGATIVE) 09/25/18 21:15 Urine Blood Negative (NEGATIVE) 09/25/18 21:15 Urine Nitrate Negative (NEGATIVE) 09/25/18 21:15 Urine Bilirubin Negative (NEGATIVE) 09/25/18 21:15 Urine Urobilinogen 0.2 E.U./dL (<1 E.U./dL) 09/25/18 21:15 Ur Leukocyte Esterase Negative Elicia/uL (NEGATIVE) 09/25/18 21:15 Urine Opiates Screen Negative (NEGATIVE) 09/26/18 18:40 Urine Methadone Screen Negative (NEGATIVE) 09/26/18 18:40 Ur Barbiturates Screen Negative (NEGATIVE) 09/26/18 18:40 Ur Phencyclidine Scrn Negative (NEGATIVE) 09/26/18 18:40 Ur Amphetamines Screen Negative (NEGATIVE) 09/26/18 18:40 U Benzodiazepines Scrn Negative (NEGATIVE) 09/26/18 18:40 U Oth Cocaine Metabols Negative (NEGATIVE) 09/26/18 18:40 U Cannabinoids Screen Negative (NEGATIVE) 09/26/18 18:40 Alcohol, Quantitative < 10 mg/dL (0-10) 09/26/18 18:02 Attending/Attestation - Attestation I have personally seen and examined this patient.: Yes I have fully participated in the care of the patient.: Yes I have reviewed all pertinent clinical information, including history, physical exam and plan: Yes Notes (Text): 09/27/18 17:19 48 year old male with past medical history of CKD and strong family cardiac history who presented with complaint of chest pain and diaphoresis. UDS and D- dimer were negative. Serial cardiac enzymes were negative. However yesterday evening chest pain and diaphoresis persisted. He was given aspirin and plavix and underwent cardiac cath this morning. Case discussed with cardiology; no significant blockage of coronaries. Patient reports his symptoms have improved since admission. He is discharged home to follow up with pmd. Follow up with GI if symptoms persist. Continue with aspirin and PPI. Monitor CKD closely as outpatient. Blake Monroe MD Hospitalist.
[2018-09-27 17:55] VITALS: BP 124/76; PULSE 88; O2SAT 98
--- NOTE | 2018-09-27 19:17 | CARDCATH ---
PROCEDURE DATE: 09/27/2018 The patient is a 48-year-old -[place] male who presents because of typical retrosternal chest pain which should be cared while on telemetry unit and that the response was activated. Cardiac catheterization was indicated in view of the typical nature of chest pain which the patient described as stiffness, and was associated with diaphoresis and the two episodes of chest pain. PROCEDURES: After local infiltration with 1% lidocaine, a 6-Tanzanian sheath was placed in the right femoral artery. Left and right coronary angiography were performed with 6-Tanzanian JL4 and JR4 diagnostic catheters. Left ventriculogram was performed with a 6-Tanzanian pigtail catheter. The patient tolerated the procedure well without any complications. ANGIOGRAPHIC STUDY: Selective injection of the left coronary artery revealed left main to be a normal vessel. Left main bifurcated into medium-sized LAD and medium-sized circumflex artery. The LAD had an intramuscular portion in its middle segment without any systolic collapse. The entire left coronary artery circulation was, otherwise, unremarkable. The circumflex artery was a codominant system. Selective injection of the right coronary artery revealed a medium-sized codominant vessel that was angiographically unremarkable. The left ventriculogram was performed in the DAVIS projection revealing normal wall motion. Ejection fraction estimated at 55%. CONCLUSION: Unremarkable coronary artery circulation, except for intramuscular portion of the mid left anterior descending artery and normal left ventricular systolic function. RECOMMENDATIONS: cardiac cause of chest pain is recommended. Mitchel Brady MD
== END 2018-09-27 19:37 | disposition home or self-care (01) | DRG 287 ==
LOC: ED 20:00 → ERH 22:49 → 3RNO 09-26 00:50 → OBSVTOIN 09-26 17:41 → 2RNO 09-26 20:22 → 2RSO 09-27 11:24
PROVIDERS: ADMIT Hospitalist; ATTEND Internal Medicine
PROC: 4A023N7 Measurement of Cardiac Sampling and Pressure, Left Heart, Percutaneous Approach (ICD-10-PCS; principal; 2018-09-27)
PROC: B2111ZZ Fluoroscopy of Multiple Coronary Arteries using Low Osmolar Contrast (ICD-10-PCS; 2018-09-27)
PROC: B2151ZZ Fluoroscopy of Left Heart using Low Osmolar Contrast (ICD-10-PCS; 2018-09-27)
DX: R07.2 Precordial pain (principal); N17.9 Acute kidney failure, unspecified; I12.9 Hypertensive chronic kidney disease with stage 1 through stage 4 chronic kidney disease, or unspecified chronic kidney disease; N18.9 Chronic kidney disease, unspecified; F17.200 Nicotine dependence, unspecified, uncomplicated; E03.9 Hypothyroidism, unspecified; Z82.49 Family history of ischemic heart disease and other diseases of the circulatory system; Z83.3 Family history of diabetes mellitus